=== PATIENT | male | born 1980 | race Hispanic/Latino ===

== ENCOUNTER 2017-11-30 00:33 | Inpatient (IN) | payer OTHER ==
[2017-11-30] MEDS ORDERED: Sodium Chloride 0.9% 1,000 ML IV STA (01:27)
--- NOTE | 2017-11-30 01:40 | ED PDOC ---
HPI: Abdomen Time Seen by Provider: 11/30/17 01:38 Chief Complaint (Nursing): Abdominal Pain Additional Complaint(s): 37 YO M presents to the ED with Right lower quadrant pain which started suddenly two hours after he worked out. Pain started at 7 pm and characterizes it has sharp 10/10. Pain radiates towards periumbilcial area. Denies any Fever, chills, nausea, vomiting, diarrhea, or pain during micturation. Denies any blood in urine. Has never had this type of abdominal pain in the past. Patient states he was so tired from the pain that he fell asleep on the cough , when he tried to get up and walk to the bathroom he collapsed and was profusely sweating. Denies hitting his head. His picked him up and he walked over to the couch. Currently describes pain as a 8/10. PMH: Hypothyroidism, Low testosterone? PSH: Tonsillitis surgery and hernia repair. Medicine: 3000mg of Vit C, Testosterone injections, Levothyroxine, Rimidex Allergy: Penicillin and bee sting FH: none SH: Smokes marajana couple times throughout week, drinks alcohol socially, denies any other illicit drug use. Lives with Past Medical History Vital Signs: Last Vital Signs Temp 97.9 F 11/30/17 00:48 Pulse 98 H 11/30/17 00:48 Resp 18 11/30/17 00:48 BP 142/80 11/30/17 00:48 Pulse Ox 98 11/30/17 05:37 - Medical History PMH: Back Problems, Hypothyroidism Denies: Chronic Kidney Disease - Surgical History Surgical History: Hernia Repair, Tonsillectomy (and adenoidectomy) - Family History Family History: States: No Known Family Hx - Living Arrangements Living Arrangements: With Family - Social History Current smoker - smoking cessation education provided: Yes (27 pack years) Alcohol: Occasional Drugs: Cannabis - Home Medications Home Medications: Ambulatory Orders Medication Instructions Recorded Naproxen [Naprosyn] 500 mg PO BID #20 tab 08/02/15 Tramadol Hydrochloride [Tramadol 50 mg PO Q6H PRN #15 tab 08/02/15 HCl] Anastrozole [Arimidex] 1 mg PO ONCE 11/30/17 Levothyroxine [Synthroid] 50 mcg PO ONCE 03/02/18 Liothyronine [Cytomel] 25 mcg PO ONCE 11/30/17 Testosterone Cypionate [Novaplus 0.9 mg IM Q72 11/30/17 Depo-Testosterone] - Allergies Allergies/Adverse Reactions: Allergies Allergy/AdvReac Type Severity Reaction Status Date / Time Penicillins Allergy RASH Verified 11/30/17 00:48 Physical Exam - Physical Exam Appears: Positive for: Uncomfortable Head Exam: Positive for: NORMAL INSPECTION Skin: Positive for: Normal Color Neck: Positive for: Normal Cardiovascular/Chest: Positive for: Regular Rate, Rhythm. Negative for: Murmur Respiratory: Positive for: Normal Breath Sounds. Negative for: Crackles, Rales , Rhonchi, Wheezing Gastrointestinal/Abdominal: Positive for: Bowel Sounds, Tenderness (right lower tenderness and guarding. Rovsing sign positve. ), Guarding. Negative for: Organomegaly, Mass Back: Negative for: L CVA Tenderness, R CVA Tenderness - Laboratory Results Result Diagrams: 11/30/17 01:30 11/30/17 01:30 - ECG O2 Sat by Pulse Oximetry: 98 - CT Scan/US CT abdomen Other Rad Studies (CT/US): Radiology Report Reviewed ([facility] report reviewed: CT Abdomen shows enlarged appendix, measuring 1.1 cm in diameter . Early appendicitis not excluded) Medical Decision Making Medical Decision Making: Patient had a white count of 11.4. - ALT/AST noted to be elevated. CT abdomen showed findings consistent with physical exam. CT Abdomen shows enlarged appendix, measuring 1.1 cm, early appendicitis can not be ruled out. - Surgery Resident called and made aware. Pain controlled with medication. Dose of cipro flagyl given - Seen at bedside w/ surgery. Patient will be admitted for laproscopic appendectomy. Disposition - Clinical Impression Clinical Impression: Appendicitis, Abdominal pain - Patient ED Disposition Is Patient to be Admitted: Yes - Disposition Disposition Time: 05:52 Condition: STABLE Instructions: Appendectomy, Laparoscopic Surgery Forms: [employer] (Greenlandic) - Pt Status Changed To: Hospital Disposition Of: Inpatient - Admit Certification Admit to Inpatient:: After my assessment, the patient will require hospitalization for at least two midnights. This is because of the severity of symptoms shown, intensity of services needed, and/or the medical risk in this patient being treated as an outpatient.
[2017-11-30 01:44] LABS: BASO # 0.1 K/uL (0.0-0.2); BASO % 0.6 % (0.0-2.0); EOS # 0.2 K/uL (0.0-0.7); EOS % 2.1 % (0.0-4.0); HEMOGLOBIN 16.1 g/dL (12.0-18.0); LYMPH # 1.8 K/uL (1.0-4.3); LYMPH % 16.2 % (20.0-40.0); MEAN CELL VOLUME 86.1 fl (80.0-94.0); MEAN CORPUSCULAR HEMOGLOBIN 28.5 pg (27.0-31.0); MEAN CORPUSCULAR HGB CONC 33.1 g/dL (33.0-37.0); MEAN PLATELET VOLUME 9.3 fl (7.2-11.7); MONO # 1.2 K/uL (0.0-0.8); MONO % 10.9 % (0.0-10.0); NEUT % 70.2 % (50.0-75.0); NRBC % 0.7 % (0.0-0.0); RBC 5.65 Mil/uL (4.40-5.90); RED CELL DISTRIBUTION WIDTH 14.6 % (11.5-14.5); WHITE BLOOD COUNT 11.4 K/uL (4.8-10.8)
[2017-11-30 01:52] LABS: ALB/GLOB RATIO 1.3 (1.0-2.1); ALT/SGPT 130 U/L (21-72); AST/SGOT 73 U/L (17-59); BLOOD UREA NITROGEN 19 mg/dl (9-20); CALCIUM 8.8 mg/dL (8.4-10.2); GFR AFRICAN-AMERICAN > 60; GFR NON-AFRICAN AMERICAN > 60
[2017-11-30 02:05] LABS: SQUAMOUS EPITHIAL 1 /hpf (0-5); URINE BACTERIA RARE (<OCC); URINE BILIRUBIN NEGATIVE (NEGATIVE); URINE BLOOD NEGATIVE (NEGATIVE); URINE CLARITY SLIGHTY-CLOUDY (Clear); URINE COLOR YELLOW (YELLOW); URINE GLUCOSE (UA) NEG (Normal); URINE HYALINE CAST 0-2 /hpf (0-2); URINE LEUKOCYTE ESTERASE NEG Leu/uL (Negative); URINE NITRATE NEGATIVE (NEGATIVE); URINE PROTEIN 30 mg/dL (NEGATIVE); URINE UROBILINOGEN 0.2-1.0 mg/dL (0.2-1.0)
[2017-11-30 02:22] LABS: BARBITURATES, UR NEGATIVE (NEGATIVE); BENZODIAZEPINES, UR POSITIVE (NEGATIVE); OPIATES, UR NEGATIVE (NEGATIVE); PHENCYCLIDINE, UR NEGATIVE (NEGATIVE)
[2017-11-30] MEDS ORDERED: Sodium Chloride 0.9% 100 ML ONE (02:34)
[2017-11-30] MEDS ORDERED: Iohexol 300 100 ML IJ ONE (02:34)
--- NOTE | 2017-11-30 03:37 | CT ---
EXAM: CT Abdomen and Pelvis With Intravenous Contrast CLINICAL HISTORY: 37 years old, male; Pain; Abdominal pain; Localized; Right lower quadrant (rlq); Additional info: Rlq pain TECHNIQUE: Axial computed tomography images of the abdomen and pelvis with intravenous contrast. All CT scans at this facility use one or more dose reduction techniques, viz.: automated exposure control; ma/kV adjustment per patient size (including targeted exams where dose is matched to indication; i.e. head); or iterative reconstruction technique. Coronal and sagittal reformatted images were created and reviewed. CONTRAST: 95 mL of [id number] administered intravenously. COMPARISON: No relevant prior studies available. FINDINGS: Lower thorax: Minimal atelectasis/scarring. ABDOMEN: Liver: Fatty infiltration. Gallbladder and bile ducts: No calcified stones. No ductal dilation. Pancreas: No ductal dilation. No mass. Spleen: No splenomegaly. Adrenals: No mass. Kidneys and ureters: Few small renal calculi. Probable LEFT renal cyst. 4.3 x 2.6 x 3.4 cm lesion within RIGHT kidney, indeterminate by CT criteria. No hydronephrosis. Stomach and bowel: No definite mural thickening. No obstruction. Appendix: Enlarged appendix, measuring up to 1.1 cm in diameter. Equivocal minimal stranding about appendix. PELVIS: Bladder: Unremarkable. Reproductive: Unremarkable as visualized. ABDOMEN and PELVIS: Intraperitoneal space: No significant fluid collection. No free air. Bones/joints: Mild degenerative changes of spine. No acute fracture. Probable bone island. Soft tissues: Unremarkable. Vasculature: Unremarkable. No aneurysm. Lymph nodes: No pathologically enlarged lymph nodes. IMPRESSION: 1. Enlarged appendix with equivocal inflammation. Early appendicitis not excluded. Clinical correlation is needed. 2. Kidney lesion, indeterminate. Recommend nonemergent ultrasound or MRI. 3. Incidental/non-acute findings are described above.
[2017-11-30] MEDS ORDERED: Ciprofloxacin 400mg/200ml D5W 400 MG/200 ML BAG IV STA (05:28)
[2017-11-30] MEDS ORDERED: metroNIDAZOLE 500mg/100ml NS 100 ML IVPB STA (05:28)
--- NOTE | 2017-11-30 05:49 | CP.PCM.HP ---
History of Present Illness - History of Present Illness History of Present Illness: History and Physical for Dr. Bautista This is a 37M with a PMH of hypothyroidism and low testosterone. He presented to the ED with a compliant of right lower abdominal pain that began last night. He said by the time he noticed it the pain was sever and in the right lower quadrant He reports it was so bad he felt he was going to pass out so he called an ambulance. He denies any previous similar episodes. Last BM was large volume yesterday no blood. He denies nausea vomiting, or fevers at home. CT in the Ed shows a large appendix without inflammatory changes. PMH: See above PSH: Inguinal Hernia as a child All: NKDA Social: 15cigs per day, denies drinking and drugs. Present on Admission - Present on Admission Any Indicators Present on Admission: No Review of Systems - Review of Systems All systems: reviewed and no additional remarkable complaints except - Gastrointestinal Gastrointestinal: Abdominal Pain. absent: Diarrhea, Nausea, Vomiting Past Patient History - Infectious Disease Hx of Infectious Diseases: None - Past Social History Alcohol: Occasional Drugs: Cannabis - CARDIAC Hx Cardiac Disorders: No - PULMONARY Hx Respiratory Disorders: No - NEUROLOGICAL Hx Neurological Disorder: No - HEENT Hx HEENT Problems: No - RENAL Hx Chronic Kidney Disease: No - ENDOCRINE/METABOLIC Hx Hypothyroidism: Yes - HEMATOLOGICAL/ONCOLOGICAL Hx Blood Disorders: No - INTEGUMENTARY Hx Dermatological Problems: No - PSYCHIATRIC Hx Substance Use: Yes (Marijuana) - SURGICAL HISTORY Hx Tonsillectomy: Yes (and adenoidectomy) - ANESTHESIA Hx Anesthesia: Yes Hx Anesthesia Reactions: No Hx Malignant Hyperthermia: No Meds Allergies/Adverse Reactions: Allergies Allergy/AdvReac Type Severity Reaction Status Date / Time Penicillins Allergy RASH Verified 11/30/17 00:48 Physical Exam - Constitutional Appears: Non-toxic, No Acute Distress - Head Exam Head Exam: ATRAUMATIC, NORMOCEPHALIC - Eye Exam Eye Exam: EOMI - ENT Exam ENT Exam: Mucous Membranes Moist - Respiratory Exam Respiratory Exam: NORMAL BREATHING PATTERN - Cardiovascular Exam Cardiovascular Exam: REGULAR RHYTHM - GI/Abdominal Exam GI & Abdominal Exam: Guarding, Soft, Tenderness. absent: Distended, Rigid Additional comments: + Rovsing - Neurological Exam Neurological exam: Alert, Oriented x3 - Psychiatric Exam Psychiatric exam: Normal Affect, Normal Mood - Skin Skin Exam: Dry, Intact Results - Vital Signs Recent Vital Signs: Last Vital Signs Temp 97.9 F 11/30/17 00:48 Pulse 98 H 11/30/17 00:48 Resp 18 11/30/17 00:48 BP 142/80 11/30/17 00:48 Pulse Ox 98 11/30/17 05:37 - Labs Result Diagrams: 11/30/17 01:30 11/30/17 01:30 Labs: Laboratory Results - last 24 hr 11/30/17 11/30/17 11/30/17 01:30 01:30 01:30 WBC 11.4 H RBC 5.65 Hgb 16.1 Hct 48.6 MCV 86.1 MCH 28.5 MCHC 33.1 RDW 14.6 H Plt Count 210 MPV 9.3 Neut % (Auto) 70.2 Lymph % (Auto) 16.2 L [place] % (Auto) 10.9 H Eos % (Auto) 2.1 Baso % (Auto) 0.6 Neut # (Auto) 8.0 H Lymph # (Auto) 1.8 [place] # (Auto) 1.2 H Eos # (Auto) 0.2 Baso # (Auto) 0.1 Sodium 138 Potassium 4.2 Chloride 101 Carbon Dioxide 27 Anion Gap 14 BUN 19 Creatinine 1.0 Est GFR ( Amer) > 60 Est GFR (Non-Af Amer) > 60 Random Glucose 90 Calcium 8.8 Total Bilirubin 1.0 AST 73 H ALT 130 H Alkaline Phosphatase 72 Total Protein 7.0 Albumin 4.0 Globulin 3.0 Albumin/Globulin Ratio 1.3 Urine Color Urine Clarity Urine pH Ur Specific [place] Urine Protein Urine Glucose (UA) Urine Ketones Urine Blood Urine Nitrate Urine Bilirubin Urine Urobilinogen Ur Leukocyte Esterase Urine RBC (Auto) Urine Microscopic WBC Ur Squamous Epith Cells Urine Bacteria Hyaline Casts Urine Opiates Screen Negative Urine Methadone Screen Negative Ur Barbiturates Screen Negative Ur Phencyclidine Scrn Negative Ur Amphetamines Screen Positive H U Benzodiazepines Scrn Positive U Oth Cocaine Metabols Negative U Cannabinoids Screen Positive H 11/30/17 01:30 WBC RBC Hgb Hct MCV MCH MCHC RDW Plt Count MPV Neut % (Auto) Lymph % (Auto) [place] % (Auto) Eos % (Auto) Baso % (Auto) Neut # (Auto) Lymph # (Auto) [place] # (Auto) Eos # (Auto) Baso # (Auto) Sodium Potassium Chloride Carbon Dioxide Anion Gap BUN Creatinine Est GFR ( Amer) Est GFR (Non-Af Amer) Random Glucose Calcium Total Bilirubin AST ALT Alkaline Phosphatase Total Protein Albumin Globulin Albumin/Globulin Ratio Urine Color Yellow Urine Clarity Slighty-cloudy Urine pH 6.0 Ur Specific [place] 1.018 Urine Protein 30 Urine Glucose (UA) Neg Urine Ketones Negative Urine Blood Negative Urine Nitrate Negative Urine Bilirubin Negative Urine Urobilinogen 0.2-1.0 Ur Leukocyte Esterase Neg Urine RBC (Auto) 2 Urine Microscopic WBC 2 Ur Squamous Epith Cells 1 Urine Bacteria Rare Hyaline Casts 0-2 Urine Opiates Screen Urine Methadone Screen Ur Barbiturates Screen Ur Phencyclidine Scrn Ur Amphetamines Screen U Benzodiazepines Scrn U Oth Cocaine Metabols U Cannabinoids Screen Assessment & Plan - Assessment and Plan (Free Text) Assessment: This is a 37M presenting with abdominal pain secondary to appendicitis Admit to Dr. Bautista's service NPO Zosyn IVF Pain control Coags OR today for laparoscopic appendectomy Discussed with Dr. Michele Puri PGY2
[2017-11-30] MEDS ORDERED: metroNIDAZOLE 500mg/100ml NS 100 ML IVPB ONE (05:51)
[2017-11-30] MEDS ORDERED: Ciprofloxacin 400mg/200ml D5W 400 MG/200 ML BAG IVPB ONE (05:52)
[2017-11-30 06:42] LABS: PARTIAL THROMBOPLASTIN TIME 33.8 Seconds (25.6-37.1); PROTHROMBIN TIME 11.6 Seconds (9.8-13.1)
[2017-11-30] MEDS ORDERED: HYDROmorphone 0.5 mg/0.5 ml ISec IVP PRN (06:59)
[2017-11-30] MEDS ORDERED: HYDROmorphone 0.5 mg/0.5 ml ISec IVP SCH (07:00)
[2017-11-30] MEDS ORDERED: HYDROmorphone 0.5 mg/0.5 ml ISec ONE (07:04)
[2017-11-30] MEDS: Sodium Chloride 0.9% 1,000 ML IV SCH (07:39)
[2017-11-30] MEDS: Levothyroxine 50 MCG TAB PO SCH (07:39)
[2017-11-30] MEDS ORDERED: TESTOSTERONE CYPIONATE IM SCH (09:00)
--- NOTE | 2017-11-30 09:24 | RAD ---
HISTORY: admit COMPARISON: No prior. FINDINGS: LUNGS: No active pulmonary disease. PLEURA: No significant pleural effusion identified, no pneumothorax apparent. CARDIOVASCULAR: Normal. OSSEOUS STRUCTURES: No significant abnormalities. VISUALIZED UPPER ABDOMEN: Normal. OTHER FINDINGS: None. IMPRESSION: No active disease.
[2017-11-30 09:42] VITALS: BMI 35.2
[2017-11-30] MEDS: Ciprofloxacin 400mg/200ml D5W 400 MG/200 ML BAG IVPB SCH ×2 (09:50→21:18)
[2017-11-30] MEDS ORDERED: Bupivacaine 0.5% Inj(30mL) ONE (10:08)
[2017-11-30] MEDS ORDERED: Propofol 10 mg/ml Inj (20 ML) ONE ×2 (10:21→12:00)
[2017-11-30] MEDS ORDERED: Succinylcholine 200 mg/10 ml Inj IV ONE (10:22)
[2017-11-30] MEDS ORDERED: Lactated Ringer's 1,000 ML IV ONE ×2 (10:40→12:15)
[2017-11-30] MEDS ORDERED: Rocuronium 10 mg/ml (5 ml) ONE ×2 (10:51→11:02)
[2017-11-30] MEDS ORDERED: Esmolol 100 mg/10ml Inj IV ONE (11:05)
[2017-11-30] MEDS ORDERED: Neostigmine 1:1000 (1 mg/ml) Inj ONE (11:12)
[2017-11-30] MEDS ORDERED: Bupivacaine 0.5% 50 ML IJ ONE ×2 (11:46→12:00)
--- NOTE | 2017-11-30 12:37 | PCM.SURG1 ---
Surgeon's Initial Post Op Note - Surgeon's Notes Surgeon: MD Michele Goodyear Stitcher: Marcos Young DO, DPM Pre-Operative Diagnosis: Acute appendicitis Operative Findings: Enlarged appendix, umbilical hernia Post-Operative Diagnosis: ACute appendicitis, Umbilical hernia Operation Performed: Laparoscopic Appendectomy, Umbilical hernia repair Specimen/Specimens Removed: Appendix, Umbilical hernia sac Estimated Blood Loss: EBL {In ML}: 10 Blood Products Given: N/A Drains Used: No Drains Post-Op Condition: Good Date of Surgery/Procedure: 11/30/17 Time of Surgery/Procedure: 10:00
[2017-11-30] MEDS: HYDROmorphone 0.5 mg/0.5 ml ISec IVP PRN ×6 (12:40→14:00)
--- NOTE | 2017-11-30 18:02 | CARD ---
APPROVED REPORT EKG Measurement Heart [id number] <Conclusion> Normal sinus rhythm Normal ECG
[2017-12-01 00:38] VITALS: TEMP 98.2; O2SAT 95
[2017-12-01] MEDS: Sodium Chloride 0.9% 1,000 ML IV SCH (01:29)
--- NOTE | 2017-12-01 05:42 | CP.PCM.DIS ---
Provider - Provider Date of Admission: 11/30/17 05:31 Attending physician: Grzegorz Bautista MD Time Spent in preparation of Discharge (in minutes): 40 Hospital Course - Lab Results Lab Results: Most Recent Lab Values WBC 11.4 K/uL (4.8-10.8) H 11/30/17 01:30 RBC 5.65 Mil/uL (4.40-5.90) 11/30/17 01:30 Hgb 16.1 g/dL (12.0-18.0) 11/30/17 01:30 Hct 48.6 % (35.0-51.0) 11/30/17 01:30 MCV 86.1 fl (80.0-94.0) 11/30/17 01:30 MCH 28.5 pg (27.0-31.0) 11/30/17 01:30 MCHC 33.1 g/dL (33.0-37.0) 11/30/17 01:30 RDW 14.6 % (11.5-14.5) H 11/30/17 01:30 Plt Count 210 K/uL (130-400) 11/30/17 01:30 MPV 9.3 fl (7.2-11.7) 11/30/17 01:30 Neut % (Auto) 70.2 % (50.0-75.0) 11/30/17 01:30 Lymph % (Auto) 16.2 % (20.0-40.0) L 11/30/17 01:30 [place] % (Auto) 10.9 % (0.0-10.0) H 11/30/17 01:30 Eos % (Auto) 2.1 % (0.0-4.0) 11/30/17 01:30 Baso % (Auto) 0.6 % (0.0-2.0) 11/30/17 01:30 Neut # (Auto) 8.0 K/uL (1.8-7.0) H 11/30/17 01:30 Lymph # (Auto) 1.8 K/uL (1.0-4.3) 11/30/17 01:30 [place] # (Auto) 1.2 K/uL (0.0-0.8) H 11/30/17 01:30 Eos # (Auto) 0.2 K/uL (0.0-0.7) 11/30/17 01:30 Baso # (Auto) 0.1 K/uL (0.0-0.2) 11/30/17 01:30 PT 11.6 Seconds (9.8-13.1) 11/30/17 06:13 INR 1.0 (0.9-1.2) 11/30/17 06:13 APTT 33.8 Seconds (25.6-37.1) 11/30/17 06:13 Sodium 138 mmol/l (132-148) 11/30/17 01:30 Potassium 4.2 MMOL/L (3.6-5.0) 11/30/17 01:30 Chloride 101 mmol/L (98-107) 11/30/17 01:30 Carbon Dioxide 27 mmol/L (22-30) 11/30/17 01:30 Anion Gap 14 (10-20) 11/30/17 01:30 BUN 19 mg/dl (9-20) 11/30/17 01:30 Creatinine 1.0 mg/dl (0.8-1.5) 11/30/17 01:30 Est GFR ( Amer) > 60 11/30/17 01:30 Est GFR (Non-Af Amer) > 60 11/30/17 01:30 Random Glucose 90 mg/dL (75-110) 11/30/17 01:30 Lactic Acid 0.6 MMOL/L (0.7-2.1) L 11/30/17 06:13 Calcium 8.8 mg/dL (8.4-10.2) 11/30/17 01:30 Total Bilirubin 1.0 mg/dl (0.2-1.3) 11/30/17 01:30 AST 73 U/L (17-59) H 11/30/17 01:30 ALT 130 U/L (21-72) H 11/30/17 01:30 Alkaline Phosphatase 72 U/L (38-126) 11/30/17 01:30 Total Protein 7.0 G/DL (6.3-8.2) 11/30/17 01:30 Albumin 4.0 g/dL (3.5-5.0) 11/30/17 01:30 Globulin 3.0 gm/dL (2.2-3.9) 11/30/17 01:30 Albumin/Globulin Ratio 1.3 (1.0-2.1) 11/30/17 01:30 Urine Color Yellow (YELLOW) 11/30/17 01:30 Urine Clarity Slighty-cloudy (Clear) 11/30/17 01:30 Urine pH 6.0 (5.0-8.0) 11/30/17 01:30 Ur Specific [place] 1.018 (1.003-1.030) 11/30/17 01:30 Urine Protein 30 mg/dL (NEGATIVE) 11/30/17 01:30 Urine Glucose (UA) Neg mg/dL (Normal) 11/30/17 01:30 Urine Ketones Negative mg/dL (NEGATIVE) 11/30/17 01:30 Urine Blood Negative (NEGATIVE) 11/30/17 01:30 Urine Nitrate Negative (NEGATIVE) 11/30/17 01:30 Urine Bilirubin Negative (NEGATIVE) 11/30/17 01:30 Urine Urobilinogen 0.2-1.0 mg/dL (0.2-1.0) 11/30/17 01:30 Ur Leukocyte Esterase Neg Ronnie/uL (Negative) 11/30/17 01:30 Urine RBC (Auto) 2 /hpf (0-3) 11/30/17 01:30 Urine Microscopic WBC 2 /hpf (0-5) 11/30/17 01:30 Ur Squamous Epith Cells 1 /hpf (0-5) 11/30/17 01:30 Urine Bacteria Rare (<OCC) 11/30/17 01:30 Hyaline Casts 0-2 /hpf (0-2) 11/30/17 01:30 Urine Opiates Screen Negative (NEGATIVE) 11/30/17 01:30 Urine Methadone Screen Negative (NEGATIVE) 11/30/17 01:30 Ur Barbiturates Screen Negative (NEGATIVE) 11/30/17 01:30 Ur Phencyclidine Scrn Negative (NEGATIVE) 11/30/17 01:30 Ur Amphetamines Screen Positive (NEGATIVE) H 11/30/17 01:30 U Benzodiazepines Scrn Positive (NEGATIVE) 11/30/17 01:30 U Oth Cocaine Metabols Negative (NEGATIVE) 11/30/17 01:30 U Cannabinoids Screen Positive (NEGATIVE) H 11/30/17 01:30 - Hospital Course Hospital Course: This is a 37M with a PMH of hypothyroidism and low testosterone. He presented to the ED with a compliant of right lower abdominal pain that began last night. He said by the time he noticed it the pain was sever and in the right lower quadrant He reports it was so bad he felt he was going to pass out so he called an ambulance. He denies any previous similar episodes. Last BM was large volume yesterday no blood. He denies nausea vomiting, or fevers at home. CT in the Ed shows a large appendix without inflammatory changes. Patient underwent laparoscopic appendectomy with repair of incidental umbilical hernia on 11/30/2017. Operation was uncomplicated. Patient did well after. Tolerating diet. Will be DC'd with 2 week follow up. Discharge Exam - Head Exam Head Exam: NORMAL INSPECTION - Eye Exam Eye Exam: EOMI, PERRL - Respiratory Exam Respiratory Exam: Clear to PA & Lateral, NORMAL BREATHING PATTERN - Cardiovascular Exam Cardiovascular Exam: REGULAR RHYTHM, +S1, +S2 - GI/Abdominal Exam GI & Abdominal Exam: Soft, Tenderness (moderately tender near incisions). absent: Distended, Firm, Guarding, Rebound, Rigid Additional comments: dressing CDI - Neurological Exam Neurological exam: Alert, Oriented x3 - Skin Skin Exam: Dry, Normal Color, Warm Discharge Plan - Follow Up Plan Condition: STABLE Disposition: HOME/ ROUTINE Instructions: Appendectomy, Laparoscopic Surgery Additional Instructions: Please follow up with Dr. Bautista in 2 weeks upon discharge May shower but do not submerge wound under water (no bathing) Please take OTC tylenol/Motrin for pain control Return to ED for any emergencies. Referrals: Grzegorz Bautista MD [Staff Provider] -
[2017-12-01] MEDS: Levothyroxine 50 MCG TAB PO SCH (06:34)
[2017-12-01 06:39] VITALS: RESP 20
[2017-12-01 07:30] VITALS: BP 133/83; PULSE 69
--- NOTE | 2017-12-05 22:28 | OP ---
PROCEDURE DATE: 11/30/2017 PREOPERATIVE DIAGNOSIS: Acute appendicitis with dilated appendix. POSTOPERATIVE DIAGNOSIS: Acute appendicitis with dilated appendix. OPERATION PERFORMED: Laparoscopic appendectomy and repair of a small umbilical hernia. SURGEON: Grzegorz Bautista MD GLOBAL VP CREATIVE + CONTENT MARKETING: Dr. Hector BACA and Dr. Marcos VINCENT DESCRIPTION OF PROCEDURE: In the operating room, the patient was identified by name, name of procedure, laterality, my que, the consent, wrist band, and number. After successful time-out, the abdomen having been prepped and draped with chlorhexidine and awaiting the appropriate time. The abdomen was entered through supraumbilical incision. The Veress needle was inserted without issue followed by 07/12 Visiport. A suprapubic and left lower quadrant port was placed, this allowed the identification of the distal tip. The tip was pulled up very nicely and dissection of the mesentery was uneventful. When there was made right by the base of the cecum followed by identifying the artery, which was taken by cleaning out on either side and picking with harmonic scalpel. Eventually, the base of the appendix was identified and taken with an Endo SCOTT using the 5-mm scope was placed in the bag and removed without issue. It is very little bleeding, very little anything and certainly nothing untoward. CO2 was removed after we satisfied as there was nothing else going on and the umbilical incision was somewhat hampered by a small umbilical hernia that required closure with a #1 Vicryl in a mattress style, this enclosed both. Ultimately, the hernia was well closed. The hernia sac was removed. Incision was injected with Marcaine followed by subcuticular PDS and Dermabond. The patient was taken to the recovery room in good condition after sponge and needle counts were declared correct. Grzegorz Bautista MD [id number]
== END 2017-12-01 13:16 | disposition home or self-care (01) | DRG 343 ==
LOC: H.ER 00:33 → H.ERHOLD 05:31 → H.MEDSURG1 08:53
PROVIDERS: ADMIT Surgery; ATTEND Surgery
PROC: 0DTJ4ZZ Resection of Appendix, Percutaneous Endoscopic Approach (ICD-10-PCS; principal; 2017-11-30 10:00)
PROC: 0WUF4JZ Supplement Abdominal Wall with Synthetic Substitute, Percutaneous Endoscopic Approach (ICD-10-PCS; 2017-11-30 10:00)
DX: K35.80 Unspecified acute appendicitis (principal); E03.9 Hypothyroidism, unspecified; K42.9 Umbilical hernia without obstruction or gangrene; F17.210 Nicotine dependence, cigarettes, uncomplicated

== ENCOUNTER 2017-12-04 09:07 | Emergency (ER) | payer OTHER ==
[2017-12-04 09:08] VITALS: BMI 35.2
[2017-12-04 09:41] VITALS: RESP 16; O2SAT 100
--- NOTE | 2017-12-04 09:42 | ED PDOC ---
HPI: General Adult Time Seen by Provider: 12/04/17 09:21 Chief Complaint (Nursing): Wound Check History Per: Patient Onset/Duration Of Symptoms: Days (2) Current Symptoms Are (Timing): Still Present Severity: Mild Pain Scale Rating Of: 1 Additional Complaint(s): Small amount of serosanguinous oozing from umbilicus. S/p appendectomy and umbilical hernia repair. Denies fever. Had pain post op but has been improving. No vomiting nl BM Past Medical History Vital Signs: Last Vital Signs Temp 97 F L 12/04/17 09:27 Pulse 104 H 12/04/17 09:27 Resp 16 12/04/17 09:27 BP 126/82 12/04/17 09:27 Pulse Ox 100 12/04/17 09:44 - Medical History PMH: Back Problems, Hypothyroidism Denies: HIV, Chronic Kidney Disease - Surgical History Surgical History: Hernia Repair, Tonsillectomy (and adenoidectomy) Other surgeries: s/p lap appendectomy and umbilical hernia repair. - Family History Family History: States: Unknown Family Hx - Home Medications Home Medications: Ambulatory Orders Medication Instructions Recorded Anastrozole [Arimidex] 1 mg PO ONCE 11/30/17 Levothyroxine [Synthroid] 50 mcg PO ONCE 11/30/17 Liothyronine [Cytomel] 25 mcg PO ONCE 11/30/17 Testosterone Cypionate [Novaplus 0.9 mg IM Q72 11/30/17 Depo-Testosterone] oxyCODONE/Acetaminophen [Percocet 1 ea PO Q6 PRN #10 tab 12/01/17 5/325 mg Tab] - Allergies Allergies/Adverse Reactions: Allergies Allergy/AdvReac Type Severity Reaction Status Date / Time Penicillins Allergy RASH Verified 11/30/17 00:48 Review of Systems Constitutional: Negative for: Fever Gastrointestinal: Negative for: Vomiting, Abdominal Pain Physical Exam - Physical Exam Appears: Positive for: Non-toxic, No Acute Distress Skin: Positive for: Normal Color, Warm, DRY Gastrointestinal/Abdominal: Positive for: Other (Umbilicus, small amount serosanguinous drainage. No tenderness or swelling. No surrounding erythema) - ECG O2 Sat by Pulse Oximetry: 100 Disposition - Clinical Impression Clinical Impression: Encounter for postoperative wound check - Patient ED Disposition Is Patient to be Admitted: No Counseled Patient/Family Regarding: Diagnosis, Need For Followup - Disposition Referrals: Grzegorz Bautista MD [Staff Provider] - Disposition: Routine/Home Disposition Time: 10:20 Condition: FAIR Instructions: Surgical Wound (DC) Forms: [employer] (Swazi)
[2017-12-04 10:47] VITALS: BP 128/84; PULSE 88; TEMP 98.4
== END 2017-12-04 10:38 | disposition home or self-care (01) ==
LOC: H.ER 09:07
DX: Z48.00 Encounter for change or removal of nonsurgical wound dressing (principal); E03.9 Hypothyroidism, unspecified; Z88.0 Allergy status to penicillin; Z90.49 Acquired absence of other specified parts of digestive tract